=== PATIENT | female | born 1965 ===

== ENCOUNTER 2023-04-27 09:41 | Outpatient (CLI) | payer BC ==
[2023-04-27] VITALS (22 sets, daily range): BP systolic 124–163; BP diastolic 62–91; PULSE 56–72
== END 2023-04-27 23:59 | disposition home or self-care (01) ==
LOC: CARD DIAG 09:41
PROVIDERS: ATTEND Internal Medicine Interventional Cardiology
DX: R55 Syncope and collapse (principal)
CPT/HCPCS: 93660